=== PATIENT | male | born 1990 | race Caucasian/White ===

== ENCOUNTER 2023-01-23 19:50 | Emergency (ER) | payer OTHER ==
--- OUTSIDE RECORDS SUMMARY | 2023-01-23 19:54 | XMS REPORT | Continuity of Care Document ---
:1990 Author Organization [facility] t Address [address] [facility] [address] [place] [id number] Care Team Providers Name Role Phone Gordon Jean Primary Care Physician REINA BULLOCK Attending Clinician Unavailable GEORGIANA OTDD Attending Clinician Unavailable Only, Adc Test Attending Clinician Unavailable Ann-Marie Arroyo MD Attending Clinician ANN-MARIE ARROYO Attending Clinician Unavailable COVID-PFIZER VACC-2, CLEAR MCELROY Attending Clinician Unavaila ble MEENU MCCURDY Attending Clinician Unavailable COVID-PFIZER VACC-1, CLEAR MCELROY Attending Clinician Unavaila nani Payers Payer Name Policy Type Policy Number Effective Date Expiration Date Nevaeh engle AETNA 2 [id number] 2020 00:00:00 Problems This patient has no known problems. Allergies, Adverse Reactions, Alerts Allergy Allergy Status Severity Reaction(s) Onset Inactive Treating Comm ents Source Name Type Date Date Clinician HYDROCOD DRUG Active Hives [facility] ONE INGREDI 07-18 ity of 00:00: [place] 00 [facility] Branch Hydrocod Propensi Active Hives Univer s one ty to 07-18 ity of adverse 00:00: [place] reaction 00 Medical s Branch Social History Social Habit Start Date Stop Date Quantity Comments Source Sex Assigned At [birth year] [facility] 00:00:00 00:00:00 Medical Branch Smoking Status Start Date Stop Date Source Unknown if ever smoked [facility] Medications This patient has no known medications. Procedures This patient has no known procedures. Encounters Start End Encounter Admission Attending Care Care Encounter Source Date/Time Date/Time Type Type Clinicians Facility Department ID 2023-01-17 2023-01-17 Outpatient EMILY BULLOCK [id number] Emily 13:45:00 13:45:00 REINA ybo lori 2022-04-27 2022-04-27 Outpatient EMILY TODD [id number] Emily 13:15:00 13:15:00 GEORGIANA Duongo lori 2021-12-10 2021-12-10 Laboratory Only, Adc Test [facility] [id number] Univers 10:45:00 11:00:00 Only Ann-Marie Arroyo [id number] [facility] [id number] [facility] [id number] [address] 2021-12-10 2021-12-10 Outpatient Jad ARROYO [facility] [id number] Univers 10:45:00 10:45:00 ANN-MARIE [facility] 2021-08-11 2021-08-11 Outpatient EMILY BULLOCK [id number] Emily 00:00:00 00:00:00 REINA ybo lori 2021-08-04 2021-08-04 Outpatient COVID-PFIZE EMILY OLIVEIRA [id number] Emily 08:30:00 08:30:00 R VACC-2, Seyb old CLEAR 2021-08-03 2021-08-03 Outpatient EMILY BULLOCK [id number] Emily 00:00:00 00:00:00 REINA Davidybo ld 2021-07-14 2021-07-14 Outpatient EMILY BULLOCK [id number] Emily 11:45:00 11:45:00 REINA Seybo ld 2021-07-14 2021-07-14 Outpatient EMILY MCCURDY [id number] Emily 10:15:00 10:15:00 MEENU Davidyb old 2021-07-13 2021-07-13 Outpatient COVID-PFIZE EMILY OLIVEIRA [id number] Emily 08:30:00 08:30:00 R VACC-1, Semary ann old CLEAR Results This patient has no known results.
[2023-01-23 21:26] LABS: Urine Blood Negative (Negative); Urine Glucose Negative (Negative); Urine Protein Negative (Negative)
[2023-01-23 21:34] LABS: Urine Bacteria None Seen /HPF (<20); Urine Mucus Slight /HPF (None Seen); Urine RBC <5 /HPF (None Seen)
[2023-01-23 21:37] LABS: SARS-COV-2 RT PCR NEGATIVE (NEGATIVE)
[2023-01-23 23:25] VITALS: BP 139/92; TEMP 98.2; O2SAT 99
--- NOTE | 2023-02-04 17:02 | EDPHYS ---
Physician Documentation [facility] Name: Ryder Fernandez Age: 32 yrs Sex: Male : 1990 Arrival Date: 01/23/2023 Time: 19:59 Bed IW1 Private MD: ED Physician Ezequiel Schulz HPI: 01/23 21:50 This 32 yrs old Male presents to ER via Ambulatory with complaints of Fatigue, Headache.snw 21:50 Onset: The symptoms/episode began/occurred acutely. Associated signs and symptoms: snw Pertinent positives: sore throat, fatigue, working 60+ hour weeks. . Modifying factors: The patient symptoms are alleviated by nothing. It is unknown whether or not the patient has had similar symptoms in the past. The patient has not recently seen a physician. hx of DM in family. Historical: - Allergies: 20:48 hydrocodone; mb9 - Home Meds: 20:48 None [Active]; mb9 - PMHx: 20:48 None; mb9 - PSHx: 20:48 None; mb9 - Immunization history:: Adult Immunizations up to date. - Social history:: Smoking status: Patient reports the use of cigarette tobacco products, smokes one-half pack cigarettes per day. ROS: 21:51 Eyes: Negative for injury, pain, redness, and discharge. snw 21:51 Neck: Negative for injury, pain, and swelling, Cardiovascular: Negative for chest pain, palpitations, and edema, Respiratory: Negative for shortness of breath, cough, wheezing, and pleuritic chest pain, Abdomen/GI: Negative for abdominal pain, nausea, vomiting, diarrhea, and constipation, Back: Negative for injury and pain, : Negative for injury, bleeding, discharge, and swelling, MS/Extremity: Negative for injury and deformity, Skin: Negative for injury, rash, and discoloration, Neuro: Negative for headache, weakness, numbness, tingling, and seizure. 21:51 Constitutional: Positive for body aches, fatigue, malaise. 21:51 ENT: Positive for sore throat. Exam: 21:30 Constitutional: This is a well developed, well nourished patient who is awake, alert, snw and in no acute distress. c/o malaise and fatigue Head/Face: Normocephalic, atraumatic. Eyes: Pupils equal round and reactive to light, extra-ocular motions intact. Lids and lashes normal. Conjunctiva and sclera are non-icteric and not injected. Cornea within normal limits. Periorbital areas with no swelling, redness, or edema. ENT: Nares patent. No nasal discharge, no septal abnormalities noted. Tympanic membranes are normal and external auditory canals are clear. Oropharynx with no redness, swelling, or masses, exudates, or evidence of obstruction, uvula midline. Mucous membranes moist. Neck: Trachea midline, no thyromegaly or masses palpated, and no cervical lymphadenopathy. Supple, full range of motion without nuchal rigidity, or vertebral point tenderness. No Meningismus. Chest/axilla: Normal chest wall appearance and motion. Nontender with no deformity. No lesions are appreciated. Cardiovascular: Regular rate and rhythm with a normal S1 and S2. No gallops, murmurs, or rubs. Normal PMI, no JVD. No pulse deficits. Respiratory: Lungs have equal breath sounds bilaterally, clear to auscultation and percussion. No rales, rhonchi or wheezes noted. No increased work of breathing, no retractions or nasal flaring. Abdomen/GI: Soft, non-tender, with normal bowel sounds. No distension or tympany. No guarding or rebound. No evidence of tenderness throughout. Back: No spinal tenderness. No costovertebral tenderness. Full range of motion. Skin: Warm, dry with normal turgor. Normal color with no rashes, no lesions, and no evidence of cellulitis. MS/ Extremity: Pulses equal, no cyanosis. Neurovascular intact. Full, normal range of motion. Neuro: Awake and alert, GCS 15, oriented to person, place, time, and situation. Cranial nerves II-XII grossly intact. Motor strength 5/5 in all extremities. Sensory grossly intact. Cerebellar exam normal. Normal gait. Psych: Awake, alert, with orientation to person, place and time. Behavior, mood, and affect are within normal limits. Vital Signs: 20:46 BP 139 / 92; Pulse 81; Resp 16; Temp 98.2; Pulse Ox 99% ; Weight 74.84 kg; Height 6 ft. mb9 1 in. ; 20:46 Body Mass Index 21.77 (74.84 kg, 185.42 cm) mb9 MDM: 20:59 Patient medically screened. snw 21:09 Patient medically screened. ghassan 21:52 Differential diagnosis: viral Infection, bacterial infection, fatigue. Data reviewed: snw vital signs, nurses notes, lab test result(s). Counseling: I had a detailed discussion with the patient and/or guardian regarding: the historical points, exam findings, and any diagnostic results supporting the discharge/admit diagnosis, the presence of at least one elevated blood pressure reading (>120/80) during this emergency department visit, lab results, the need for outpatient follow up, for definitive care, to return to the emergency department if symptoms worsen or persist or if there are any questions or concerns that arise at home. Special discussion: Based on the history and exam findings, there is no indication for further emergent testing or inpatient evaluation. I discussed with the patient/guardian the need to see the primary care provider for further evaluation of the symptoms. 01/23 20:15 Order name: COVID-19/FLU A+B; Complete Time: 21:38 snw 01/23 20:15 Order name: Strep; Complete Time: 21:58 snw 01/23 20:59 Order name: Urine Microscopic Only; Complete Time: 21:35 snw 01/23 21:26 Order name: Urine Dipstick-Ancillary; Complete Time: 21:35 EDDE 01/23 22:01 Order name: Throat Culture EDDE 01/23 20:59 Order name: Urine Dipstick-Ancillary (obtain specimen); Complete Time: 21:24 snw Administered Medications: No medications were administered Disposition Summary: 01/23/23 21:53 Discharge Ordered Location: Home snw Condition: Stable snw Diagnosis - Other malaise and fatigue snw Followup: snw - With: Emergency Department - When: As needed - Reason: Worsening of condition Followup: snw - With: Private Physician - When: 2 - 3 days - Reason: Recheck today's complaints, Continuance of care, Re-evaluation by your physician Discharge Instructions: - Discharge Summary Sheet snw - Fatigue snw Forms: - Work release form snw - Medication Reconciliation Form snw - Thank You Letter snw - Antibiotic Education snw - Prescription Opioid Use snw Signatures: Dispatcher [employer] EDEzequiel Boyce MD MD cha Waters, Shelly, WEED SPRAYER-C WEED SPRAYER-Csnw Nisa Wallace Beth, RN RN mb9
--- NOTE | 2023-02-04 17:02 | ER ---
Nurse's Notes [facility] Name: Ryder Fernandez Age: 32 yrs Sex: Male : 1990 Arrival Date: 01/23/2023 Time: 19:59 Bed IW1 Private MD: Diagnosis: Other malaise and fatigue Presentation: 01/23 20:46 Chief complaint: Patient states: "I've been exhausted lately. I work a lot of hours and mb9 when I stand up I get lightheaded and shaky. I get dry skin on my nose and gets flaky. A lot of people have diabetes in my family so I don't know if that's it. I just don't feel right". Coronavirus screen: Vaccine status: Patient reports being unvaccinated. Ebola Screen: No symptoms or risks identified at this time. Initial Sepsis Screen: Does the patient meet any 2 criteria? No. Patient's initial sepsis screen is negative. Does the patient have a suspected source of infection? No. Patient's initial sepsis screen is negative. Risk Assessment: Do you want to hurt yourself or someone else? Patient reports no desire to harm self or others. Onset of symptoms was November 14, 2022. 20:46 Method Of Arrival: Ambulatory mb9 20:46 Acuity: KAREL 3 mb9 Triage Assessment: 22:00 General: Appears in no apparent distress. Behavior is calm, cooperative. Pain: mb9 Complains of pain in face. Neuro: Level of Consciousness is awake, alert, obeys commands, Oriented to person, place, time, situation, Appropriate for age. Neuro: Reports weakness. Respiratory: Airway is patent Respiratory effort is even, unlabored, Respiratory pattern is regular, symmetrical. Derm: Skin is pink, warm \\T\\ dry. Musculoskeletal: Range of motion: intact in all extremities. Historical: - Allergies: 20:48 hydrocodone; mb9 - Home Meds: 20:48 None [Active]; mb9 - PMHx: 20:48 None; mb9 - PSHx: 20:48 None; mb9 - Immunization history:: Adult Immunizations up to date. - Social history:: Smoking status: Patient reports the use of cigarette tobacco products, smokes one-half pack cigarettes per day. Assessment: 22:39 Reassessment: No changes from previously documented assessment. Patient and/or family mb9 updated on plan of care and expected duration. Pain level reassessed. Patient is alert, oriented x 3, equal unlabored respirations, skin warm/dry/pink. Vital Signs: 20:46 BP 139 / 92; Pulse 81; Resp 16; Temp 98.2; Pulse Ox 99% ; Weight 74.84 kg; Height 6 ft. mb9 1 in. ; 20:46 Body Mass Index 21.77 (74.84 kg, 185.42 cm) mb9 ED Course: 19:59 Patient arrived in ED. ag3 20:48 Triage completed. mb9 20:49 Arm band placed on. mb9 20:55 Strep Sent. mb9 20:55 COVID-19/FLU A+B Sent. mb9 20:59 Kizzy Rivera FNP-C is PHCP. snw 20:59 Ezequiel Schulz MD is Attending Physician. snw 21:24 Urine Microscopic Only Sent. mb9 22:39 No provider procedures requiring assistance completed. Patient did not have IV access mb9 during this emergency room visit. Administered Medications: No medications were administered Outcome: 21:53 Discharge ordered by . snw 22:39 Discharged to home ambulatory. mb9 22:39 Condition: stable 22:39 Discharge instructions given to patient, Instructed on discharge instructions, follow up and referral plans. Demonstrated understanding of instructions, follow-up care. 22:39 Patient left the ED. mb9 Signatures: Kizzy Rivera FNP-C DEAN-Csnw Gianna Rice [facility] Nisa Wallace, RN RN mb9
== END 2023-01-23 22:39 | disposition home or self-care (01) ==
LOC: ER 19:50
DX: R53.81 Other malaise (principal); R53.83 Other fatigue; F17.210 Nicotine dependence, cigarettes, uncomplicated; Z20.822 Contact with and (suspected) exposure to COVID-19; Z88.5 Allergy status to narcotic agent
CPT/HCPCS: 87070; 87081; 0240U; 99283; 81003; 81015

== ENCOUNTER 2024-09-18 15:30 | Emergency (ER) | payer OTHER ==
--- OUTSIDE RECORDS SUMMARY | 2024-09-18 15:33 | XMS REPORT | Continuity of Care Document ---
Author Name Unknown Address [address] [facility] [place] [address] [facility] Address [address] [facility] [address] [place] [address] Care Team Providers Care Erosion Control Specialist Name Role Phone Greg Jeantomy Salinas Primary Care Physician MD NIMISHA Attending Clinician Unavailab le LAB53 Attending Clinician Unavailable REINA BULLOCK Attending Clinician Unavailable GEORGIANA TODD Attending Clinician Unavailab le Only, Adc Test Attending Clinician Unavailable Ann-Marie Arroyo MD Attending Clinician [phone] ANN-MARIE ARROYO Attending Clinician Unavailabl e COVID-PFIZER VACC-2, CLEAR MCELROY Attending Clinic rekha Unavailable MEENU MCCURDY Attending Clinician Unavailable COVID-PFIZER VACC-1, CLEAR MCELROY Attending Clinic rekha Unavailable Payers Payer Name Policy Type Policy Number Effective Date Expirati on Date Source AETNA 2 [id number] 2020 00:00:00 Problems Condition Name Condition Details Condition Category Status Onset Date Resolution Date Last Treatment Date Treating Clinician Comments Source Smoker unmotivate d to quit Smoker unmotivate d to quit Disease Active 06-23 00:00: 00 Emily xavier Elevated BP without diagnosis of hypertensi on Elevated BP without diagnosis of hypertensi on Disease Active 06-23 00:00: 00 Emily Seybold - Externa l Allergies, Adverse Reactions, Alerts Allergy Name Allergy Type Status Severity Reaction(s) Onset Date Inactive Date Treating Clinician Comments Source Hydrocod one Drug Allergy Active Hives 06-23 00:00: 00 Emily Valientea l HYDROCOD ONE DRUG INGREDI Active Hives 07-18 00:00: 00 [facility] Hydrocod one Propensi ty to adverse reaction s Active Hives 07-18 00:00: 00 [facility] Social History Social Habit Start Date Stop Date Quantity Comments Source History of tobacco use Cigarette Smoker Emily jason - External History SDOH Alcohol Frequency Emily mckeon - External History SDOH Alcohol Std Drinks Emily tejada - External History SDOH Alcohol Binge Emily Virgen - External Alcohol intake 2023-01-24 00:00:00 2023-01-24 00:00:00 .86 /d Emily Dillon External Cigarettes smoked current (pack per day) - Reported 2018-06-23 00:00:00 2018-06-23 00:00:00 Emily Virgen - External Cigarette pack-years 2018-06-23 00:00:00 2018-06-23 00:00:00 Emily Virgen - External Tobacco use and exposure 2018-06-23 00:00:00 2018-06-23 00:00:00 Smokeless tobacco non-user Emily Dillon External Alcohol Comment 2018-06-23 00:00:00 2018-06-23 00:00:00 social Emily Virgen - External Sex Assigned At 1990 00:00:00 1990 00:00:00 Emily Virgen - External Smoking Status Start Date Stop Date Source Unknown [facility] Smokes tobacco daily 2018-06-23 00:00:00 Emily Virgen - External Medications Ordered Medication Name Filled Medication Name Start Date Stop Date Current Medication? Ordering Clinician Indication Dosage Frequency Signature (SIG) Comments Components Source Nicotine Polacrilex ([facility] Nicotine) 2 MG mouth/throa t Gum 01-24 00:00: 00 Yes [id number] 2mg Take 1 each (2 mg total) by mouth as needed for smoking cessation (upto 4 times daily) Emily Valientea morenita Nicotine 7 MG/24HR transdermal PATCH 24 HR 3 00:00: 00 Yes [id number] 1{patch } Place 1 patch onto the skin every 24 hours Emily Valientea l Nicotine 7 MG/24HR transdermal PATCH 24 HR 8- 00:00: 00 01-24 00:00 :00 No [id number] 1{patch } Place 1 patch onto the skin every 24 hours Emliy Valientea morenita Nicotine Polacrilex ([facility] Nicotine) 2 MG mouth/throa t Gum 07-14 00:00: 00 01-24 00:00 :00 No [id number] 2mg Take 1 each (2 mg total) by mouth as needed for smoking cessation (upto 4 times daily) Emily Virgen - Steffaniea morenita Vital Signs Vital Name Observation Time Observation Value Comments S ource Systolic blood pressure 2023-01-24 20:59:00 128 mm[Hg] Emily Sterling ld - External Diastolic blood pressure 2023-01-24 20:59:00 76 mm[Hg] Emily sandoval - External Heart rate 2023-01-24 20:59:00 84 /min Phyllis Virgen - External Body temperature 2023-01-24 20:59:00 37 Nallely Emily Virgen - External Respiratory rate 2023-01-24 20:59:00 18 /min Emily Virgen - External Body height 2023-01-24 20:59:00 184.8 cm Nahomy Virgen - External Body weight 2023-01-24 20:59:00 74.662 kg Nahomy Virgen - External BMI 2023-01-24 20:59:00 21.87 kg/m2 Nahomy Virgen - External Oxygen saturation in Arterial blood by Pulse oximetry 2023-01-24 20:59:00 99 /min Emily sandoval - External Encounters Start Date/Time End Date/Time Encounter Type Admission Type Attending [facility] Care Department Encounter ID Source 2023-05-09 00:00:00 2023-05-09 00:00:00 Outpatient MD EMILY ZULETA [id number] Emily Virgen 2023-05-06 00:00:00 2023-05-06 00:00:00 Outpatient [facility] [id number] [facility]23-01-[facility] 16:45:00 2023-01-24 16:45:00 Outpatient LAB53 EMILY OLIVEIRA [id number] [facility] 2023-01-24 16:00:00 2023-01-24 16:00:00 Outpatient REINA BULLOCK [id number] Emily [facility] 2023-01-17 13:45:00 2023-01-17 13:45:00 Outpatient REINA BULLOCK [id number] Emily [facility] 2022-04-27 13:15:00 2022-04-27 13:15:00 Outpatient GEORGIANA TODD [id number] [facility] 2021-12-10 10:45:00 2021-12-10 11:00:00 Laboratory Only Only, Adc Test PilyandryAnn-Marie [facility] [id number] [facility] 2021-12-10 10:45:00 2021-12-10 10:45:00 Outpatient ANN-MARIE DUMONT [facility] [id number] [facility] 2021-08-11 00:00:00 2021-08-11 00:00:00 Outpatient REINA BULLOCK [id number] Emily [facility] 2021-08-04 08:30:00 2021-08-04 08:30:00 Outpatient COVID-PFIZE R VACC-2, CLEAR EMILY OLIVEIRA [id number] Emily [facility] 2021-08-03 00:00:00 2021-08-03 00:00:00 Outpatient REINA BULLOCK [id number] [facility] 2021-07-14 11:45:00 2021-07-14 11:45:00 Outpatient REINA BULLOCK [id number] Emily Virgen 2021-07-14 10:15:00 2021-07-14 10:15:00 Outpatient MEENU MCCURDY [id number] Emily Virgen 2021-07-13 08:30:00 2021-07-13 08:30:00 Outpatient COVID-PFIZE R VACC-1, CLEAR EMILY OLIVEIRA [id number] [facility]
[2024-09-18] MEDS ORDERED: LIDOCAINE 1% 20 ML MDV ONE (16:59)
[2024-09-18] MEDS ORDERED: TDAP (DIPHTH,PERTUSS(ACELL),TET VAC) 0.5 ML VIAL IMVAC ONE (17:11)
--- NOTE | 2024-09-18 17:21 | EDPHYS ---
Physician Documentation [facility] Name: Ryder Fernandez Age: 34 yrs Sex: Male : 1990 Arrival Date: 09/18/2024 Time: 15:30 Bed 10 Private MD: ED Physician Carlos Pacheco HPI: 09/18 17:32 This 34 yrs old Male presents to ER via Ambulatory with complaints of Finger Injury - rt left index. 17:32 Patient presents to the ED with laceration to the left index finger with a blade. rt Reports bleeding to the area. Denies deformity, concern for broken finger. Denies other acute complaints at this time, symptoms are mild in severity, no aggravating alleviating factors.. Historical: - Allergies: 15:59 HYDROCODONE; tm6 - PMHx: 16:00 None; tm6 - PSHx: 16:00 None; tm6 - Immunization history:: Client reports having NOT received the Covid vaccine. Last tetanus immunization: < 10 years ago. - Infectious Disease History:: Denies. - Social history:: Smoking status: Patient reports the use of cigarette tobacco products. ROS: 17:33 Constitutional: Negative for fever, chills, and weight loss, Cardiovascular: Negative rt for chest pain, palpitations, and edema, Respiratory: Negative for shortness of breath, cough, wheezing, and pleuritic chest pain, Abdomen/GI: Negative for abdominal pain, nausea, vomiting, diarrhea, and constipation, 17:33 Skin: Positive for laceration(s), Exam: 17:33 Constitutional: This is a well developed, well nourished patient who is awake, alert, rt and in no acute distress. Head/Face: Normocephalic, atraumatic. Neuro: Awake and alert, GCS 15, oriented to person, place, time, and situation. Cranial nerves II-XII grossly intact. Motor strength 5/5 in all extremities. Sensory grossly intact. Cerebellar exam normal. Normal gait. 17:33 Musculoskeletal/extremity: 1.5 cm laceration to the left index finger, full range of motion, no signs of vascular injury. There is another, distal, superficial laceration not requiring primary repair.. Vital Signs: 15:57 Pulse 59; Resp 17; Temp 98.7(TE); Pulse Ox 96% ; Weight 79.38 kg; Height 6 ft. 1 in. ; tm6 Pain 0/10; 15:57 BP 137 / 89; MAP 104 mmHg; tm6 15:57 Body Mass Index 23.09 (79.38 kg, 185.42 cm) tm6 15:57 Pain Scale: Adult tm6 Laceration: 17:33 Wound Repair of 1.5cm ( 0.6in ) subcutaneous laceration to left index finger. Linear rt shaped.. Distal neuro/vascular/tendon intact. Anesthesia: Digital block administered with 2 mls of 1% lidocaine. Wound prep: Copious irrigation. Skin closed with 3 3-0 Prolene using simple sutures and sterile technique. Dressed with 4x4's. Patient tolerated well. MDM: 16:02 Medical Screening Exam initiated rt 17:33 Differential diagnosis: Laceration. Data reviewed: vital signs, nurses notes. Test rt considered but Not performed: X-ray: No deformity, full range of motion, low concern for fracture, x-rays not indicated. Counseling: I had a detailed discussion with the patient and/or guardian regarding the historical points, exam findings, and any diagnostic results supporting the discharge/admit diagnosis, the need for outpatient follow up, to return to the emergency department if symptoms worsen or persist or if there are any questions or concerns that arise at home. Response to treatment: the patient's symptoms have markedly improved after treatment. 09/18 16:02 Order name: Dressing - Wound; Complete Time: 17:22 rt 09/18 16:02 Order name: Gloves, Sterile; Complete Time: 17:22 rt 09/18 16:02 Order name: Setup Suture Tray; Complete Time: 17:22 rt Administered Medications: 17:00 Drug: Lidocaine Infiltration (1 %) 5 ml 5 ml Infiltration once; to bedside {Note: ss administered by Dr. Pacheco to affected area.} Volume: 5 ml; Route: Infiltration; 17:26 Drug: Boostrix Tdap IM 0.5 ml IM once; as a single dose Route: IM; Site: left deltoid; hb Disposition Summary: 09/18/24 17:20 Discharge Ordered Notes: Location: Home rt Problem: new rt Symptoms: have improved rt Condition: Stable rt Diagnosis - Laceration to left second finger rt Followup: rt - With: Private Physician - When: 10 - 14 days - Reason: Staple/Suture removal Discharge Instructions: - Discharge Summary Sheet rt - Laceration Care, Adult rt Forms: - Medication Reconciliation Form rt - Antibiotic Education rt - Prescription Opioid Use rt - Patient Portal Instructions rt - Leadership Thank You Letter rt Signatures: Kavita Ugalde, RN RN ss Nida Costello RN RN Carlso Pacheco MD MD rt Becca Freed RN RN tm6
--- NOTE | 2024-09-18 17:21 | ER ---
Nurse's Notes [facility] Name: Ryder Fernandez Age: 34 yrs Sex: Male : 1990 Arrival Date: 09/18/2024 Time: 15:30 Bed 10 Private MD: Diagnosis: Laceration to left second finger Presentation: 09/18 15:57 Chief complaint: Patient states: about 30 min ago cut left pointer finger when cutting tm6 up stuff in the kitchen. Coronavirus screen: Vaccine status: Patient reports being unvaccinated. Ebola Screen: Patient negative for fever greater than or equal to 101.5 degrees Fahrenheit, and additional compatible Ebola Virus Disease symptoms Patient denies exposure to infectious person. Patient denies travel to an Ebola-affected area in the 21 days before illness onset. No symptoms or risks identified at this time. Initial Sepsis Screen: Does the patient meet any 2 criteria? No. Patient's initial sepsis screen is negative. Does the patient have a suspected source of infection? No. Patient's initial sepsis screen is negative. Risk Assessment: Do you want to hurt yourself or someone else? Patient reports no desire to harm self or others. Onset of symptoms was September 18, 2024 at 15:30. 15:57 Method Of Arrival: Ambulatory tm6 15:57 Acuity: KAREL 4 tm6 Triage Assessment: 16:00 General: Appears in no apparent distress. Behavior is calm, cooperative. Pain: Denies tm6 pain. EENT: No signs and/or symptoms were reported regarding the EENT system. Neuro: Level of Consciousness is awake, alert, obeys commands, Oriented to person, place, time, situation. Cardiovascular: Patient's skin is warm and dry. Respiratory: Airway is patent Respiratory effort is even, unlabored, Respiratory pattern is regular, symmetrical. GI: Abdomen is flat, non-distended. : No signs and/or symptoms were reported regarding the genitourinary system. Derm: laceration to left index finger. Musculoskeletal: No signs and/or symptoms reported regarding the musculoskeletal system. Injury Description: Laceration sustained to left index finger was sustained less than 30 minutes ago. Historical: - Allergies: 15:59 HYDROCODONE; tm6 - PMHx: 16:00 None; tm6 - PSHx: 16:00 None; tm6 - Immunization history:: Client reports having NOT received the Covid vaccine. Last tetanus immunization: < 10 years ago. - Infectious Disease History:: Denies. - Social history:: Smoking status: Patient reports the use of cigarette tobacco products. Vital Signs: 15:57 Pulse 59; Resp 17; Temp 98.7(TE); Pulse Ox 96% ; Weight 79.38 kg; Height 6 ft. 1 in. ; tm6 Pain 0/10; 15:57 BP 137 / 89; MAP 104 mmHg; tm6 15:57 Body Mass Index 23.09 (79.38 kg, 185.42 cm) tm6 15:57 Pain Scale: Adult tm6 ED Course: 15:34 Patient arrived in ED. im 15:38 Carlos Pacheco MD is Attending Physician. rt 15:58 Triage completed. tm6 16:00 Arm band placed on right wrist. tm6 17:09 Nida Costello, RN is Primary Nurse. hb Administered Medications: 17:00 Drug: Lidocaine Infiltration (1 %) 5 ml 5 ml Infiltration once; to bedside {Note: ss administered by Dr. Pacheco to affected area.} Volume: 5 ml; Route: Infiltration; 17:26 Drug: Boostrix Tdap IM 0.5 ml IM once; as a single dose Route: IM; Site: left deltoid; hb Outcome: 17:20 Discharge ordered by . rt 17:43 Patient left the ED. ss Signatures: Kavita Ugalde RN RN Nida Costello, RN RN Carlos Pacheco MD MD rt Marcella Joyce Tawney, RN RN tm6
[2024-09-18 17:57] VITALS: BP 137/89; TEMP 98.7; O2SAT 96
== END 2024-09-18 17:43 | disposition home or self-care (01) ==
LOC: ER 15:30
DX: S61.211A Laceration without foreign body of left index finger without damage to nail, initial encounter (principal)
CPT/HCPCS: 12001; J2003

== ENCOUNTER 2025-09-04 15:30 | Emergency (ER) | payer OTHER ==
--- NOTE | 2025-09-04 15:56 | EDPHYS ---
Physician Documentation [facility] Name: Ryder Fernandez Age: 35 yrs Sex: Male : 1990 Arrival Date: 09/04/2025 Time: 15:30 Bed DX4 Private MD: ED Physician Ezequiel Scuhlz HPI: 09/04 15:51 This 35 yrs old Male presents to ER via Ambulatory with complaints of Headache. kb 15:51 Patient is a 35-year-old male who presents for headache that was present upon awaking 1 kb hour prior to arrival. States there was an Oleum spill at work last night so they had a custodial in place for 6 hours so he was not sure if the headache was related to that. States he just wanted to come get his vitals checked. Denies any other symptoms.. Historical: - Allergies: 15:50 HYDROCODONE; bp - Immunization history:: Adult Immunizations up to date. - Infectious Disease History:: Denies. - Social history:: Smoking status: Patient denies any tobacco usage or history of. ROS: 15:52 Constitutional: As per HPI kb Exam: 15:52 Constitutional: This is a well developed, well nourished patient who is awake, alert, kb and in no acute distress. Head/Face: Normocephalic, atraumatic. ENT: Moist Mucous membranes Cardiovascular: Regular rate Respiratory: Respirations even and unlabored. No increased work of breathing. Talking in full sentences Skin: Warm, dry with normal turgor. Normal color. MS/ Extremity: Pulses equal, no cyanosis. Neurovascular intact. Full, normal range of motion. Neuro: Awake and alert, GCS 15, oriented to person, place, time, and situation. Vital Signs: 15:49 BP 126 / 86; Pulse 65; Resp 16; Temp 97; Pulse Ox 100% ; bp Preston Coma Score: 15:54 Eye Response: spontaneous(4). Motor Response: obeys commands(6). Verbal Response: kb oriented(5). Total: 15. MDM: 15:40 Medical Screening Exam initiated kb 15:54 Differential diagnosis: migraine, tension headache, chemical exposure. Data reviewed: kb vital signs, nurses notes. Counseling: I had a detailed discussion with the patient and/or guardian regarding the historical points, exam findings, and any diagnostic results supporting the discharge/admit diagnosis, the need for outpatient follow up, a family practitioner, to return to the emergency department if symptoms worsen or persist or if there are any questions or concerns that arise at home. Administered Medications: 16:34 Drug: Acetaminophen PO 1000 mg PO once Route: PO; ll1 16:34 Follow up: Response: No adverse reaction ll1 Disposition Summary: 09/04/25 15:55 Discharge Ordered Notes: Location: Home kb Condition: Stable kb Diagnosis - Headache kb Followup: kb - With: Private Physician - When: 2 - 3 days - Reason: Recheck today's complaints, Continuance of care, Re-evaluation by your physician Followup: kb - With: Emergency Department - When: As needed - Reason: Worsening of condition Discharge Instructions: - Discharge Summary Sheet kb - General Headache Without Cause, [id number] kb Forms: - Medication Reconciliation Form kb - Antibiotic Education kb - Prescription Opioid Use kb - Patient Portal Instructions kb - Leadership Thank You Letter kb Signatures: Jen Marsh FNP-C FNP-Travis Arguello RN RN Leta Mota RN RN ll1 Corrections: (The following items were deleted from the chart) 15:52 15:51 Patient is a 35-year-old male who presents for headache that was present upon kb awaking 1 hour prior to arrival. States there was an Oleum spill at work last night so they had a custodial in place for 6 hours so he was not sure if the headache was related to that. States he just wanted to come get his vitals checked.. kb
--- NOTE | 2025-09-04 15:56 | ER ---
Nurse's Notes [facility] Name: Ryder Fern[facility] Age: 35 yrs Sex: Male : 1990 Arrival Date: 09/04/2025 Time: 15:30 Bed DX4 Private MD: Diagnosis: Headache Presentation: 09/04 15:49 Chief complaint: Patient states: MARTINEZ SINCE THIS AM AFTER POSSIBLE INHALANT HAZARD bp EXPOSURE LAST PM. Coronavirus screen: At this time, the client does not indicate any symptoms associated with coronavirus-19. Ebola Screen: No symptoms or risks identified at this time. Initial Sepsis Screen: Does the patient meet any 2 criteria? No. Patient's initial sepsis screen is negative. Does the patient have a suspected source of infection? No. Patient's initial sepsis screen is negative. Risk Assessment: Do you want to hurt yourself or someone else? Patient reports no desire to harm self or others. Onset of symptoms was September 04, 2025. 15:49 Method Of Arrival: Ambulatory bp 15:49 Acuity: KAREL 5 bp Triage Assessment: 15:50 Headache History: The patient has had previous headaches and this one is similar to bp previous episodes. General: Appears in no apparent distress. Behavior is appropriate for age. Pain: Complains of pain in head Pain currently is 5 out of 10 on a pain scale. Pain began 1 day ago. Also complains of no other associated symptoms. EENT: Nares are clear Throat is clear. Neuro: Level of Consciousness is awake, alert, obeys commands, Oriented to Appropriate for age Reports headache. Cardiovascular: No deficits noted. Respiratory: No deficits noted. GI: No signs and/or symptoms were reported involving the gastrointestinal system. : No signs and/or symptoms were reported regarding the genitourinary system. Derm: No deficits noted. Musculoskeletal: No deficits noted. Historical: - Allergies: 15:50 HYDROCODONE; bp - Immunization history:: Adult Immunizations up to date. - Infectious Disease History:: Denies. - Social history:: Smoking status: Patient denies any tobacco usage or history of. Screenin:34 [facility] ED Fall Risk Assessment (Adult) History of falling in the last 3 months, ll1 including since admission No falls in past 3 months (0 pts) Confusion or Disorientation No (0 pts) Intoxicated or Sedated No (0 pts) Impaired Gait No (0 pts) Mobility Assist Device Used No (0 pt) Altered Elimination No (0 pt) Score/Fall Risk Level 0 - 2 = Low Risk Maintained a safe environment, Hourly rounding (assess needs \T\ fall precautionary measures) done. Abuse screen: Denies threats or abuse. Nutritional screening: No deficits noted. Tuberculosis screening: No symptoms or risk factors identified. Assessment: 16:34 Reassessment: No changes from previously documented assessment. Patient and/or family ll1 updated on plan of care and expected duration. Pain level reassessed. Vital Signs: 15:49 BP 126 / 86; Pulse 65; Resp 16; Temp 97; Pulse Ox 100% ; bp Shalom Coma Score: 15:54 Eye Response: spontaneous(4). Motor Response: obeys commands(6). Verbal Response: kb oriented(5). Total: 15. ED Course: 15:33 Patient arrived in ED. cj3 15:40 Jen Marsh FNP-C is [facility]. kb 15:40 Ezequiel Schulz MD is Attending Physician. kb 15:50 Triage completed. bp 15:50 Arm band placed on. bp 16:34 Patient has correct armband on for positive identification. Provided Education on: ER ll1 procedures and process. 16:35 No provider procedures requiring assistance completed. Patient did not have IV access ll1 during this emergency room visit. Administered Medications: 16:34 Drug: Acetaminophen PO 1000 mg PO once Route: PO; ll1 16:34 Follow up: Response: No adverse reaction ll1 Medication: 16:35 VIS not applicable for this client. ll1 Outcome: 15:55 Discharge ordered by . kb 16:35 Discharged to home ambulatory, ll1 16:35 Condition: stable 16:35 Discharge instructions given to patient, Instructed on discharge instructions, follow up and referral plans. Demonstrated understanding of instructions, follow-up care, 16:35 Patient left the ED. ll1 Signatures: Jen Marsh FNP-C FNP-Ckb Peltier, Brian, RN RN Leta Nevarez RN RN ll1 Ursula Stein cj3
[2025-09-04] MEDS ORDERED: ACETAMINOPHEN 500 MG TAB ONE (16:31)
[2025-09-04 19:15] VITALS: BP 126/86; TEMP 97; O2SAT 100
== END 2025-09-04 16:35 | disposition home or self-care (01) ==
LOC: ER 15:30
DX: R51.9 Headache, unspecified (principal); Z88.5 Allergy status to narcotic agent
CPT/HCPCS: 99283